=== PATIENT | female | born 1960 | race Caucasian/White ===

== ENCOUNTER → 2018-07-06 | Outpatient (CLI) | payer MEDICARE ==
--- NOTE | 2018-07-06 10:44 | MM ---
Reason for exam: additional evaluation requested from prior study. Last mammogram was performed 2 years and 1 month ago. History: Patient is postmenopausal and has history of other cancer at age 57. Silicone gel implants in both breasts, 2002. Physical Findings: Nurse did not find any significant physical abnormalities on exam. MG 3D Diag Mammo Imp W/Cad MACI Bilateral CC, MLO, and ID view(s) were taken. Prior study comparison: June 07, 2016, bilateral MG 3d diag mammo imp w/cad MACI. December 20, 2013, mammogram. The breast tissue is extremely dense which could obscure a lesion on mammography. There are benign appearing round calcifications bilaterally. There is no discrete abnormality. Bilateral subpectoral implants redemonstrated. These results were verbally communicated with the patient and result sheet given to the patient on 07/06/18. ASSESSMENT: Benign, BI-RAD 2 RECOMMENDATION: Routine screening mammogram of both breasts in 1 year.
== END ==
LOC: RADMAMWWP 07:09
PROVIDERS: ATTEND Family Medicine
DX: R92.8 Other abnormal and inconclusive findings on diagnostic imaging of breast (principal)
CPT/HCPCS: 77066; G0279; 77062

== ENCOUNTER → 2018-09-22 | Outpatient (CLI) | payer MEDICARE ==
--- NOTE | 2018-09-22 16:43 | PE ---
EXAMINATION TYPE: PET CT fusion skull to thigh DATE OF EXAM: 09/22/2018 COMPARISON: None at this institution HISTORY: Lung cancer had surgery May 17, 2017 TECHNIQUE: Following the intravenous administration of 14.3 mCi of F-18 FDG, whole body images are p erformed from the skull base to the midthigh. Images are reviewed on the computer in the coronal, ax ial, and sagittal planes. Reconstructed rotating images are created on independent workstation and r eviewed on the computer. A noncontrast CT is performed in conjunction with the PET scan. SCAN: Subsequent Scan FINDINGS: SKULL BASE AND NECK: No suspicious hypermetabolic uptake is present. CHEST, MEDIASTINUM, AND HILAR REGION: There is background mild to moderate underlying emphysematous c hange. There is focal irregular 1.2 x 0.9 cm consolidation anterior left upper to midlung axial image 87 favoring postinflammatory etiology. Surgical changes right hilar region extending superiorly are noted. No new nodules or areas of suspicious hypermetabolic uptake are present. There is minimal left basilar linear scarring and/or atelectasis just above diaphragm. ABDOMEN AND PELVIS: Mild diffuse bowel uptake is present. Normal excretion in kidneys and bladder is seen. No suspicious hypermetabolic uptake or worrisome adrenal masses are noted. OSSEOUS STRUCTURES: No suspicious hypermetabolic uptake is present. OTHER CT: Anterior fusion plate lower cervical spine is present. There is moderate coronary artery calcification which is noted marker for underlying coronary artery disease. Bilateral breast implants are noted. A 1.3 cm low dense lesion in periphery of right hepatic lobe axial image 144 favors thin-walled cyst. Scattered pelvic phleboliths are seen. There is multilevel facet degenerative change in the mid to lower lumbar spine. IMPRESSION: Postsurgical change to the right lung. No convincing evidence of hypermetabolic mass or a denopathy to suggest recurrent or metastatic malignancy.
== END | disposition home or self-care (01) ==
LOC: RADPETMAIN 13:11
PROVIDERS: ATTEND Thoracic Surgery (Cardiothoracic Vascular Surgery)
DX: Z08 Encounter for follow-up examination after completed treatment for malignant neoplasm (principal); C34.11 Malignant neoplasm of upper lobe, right bronchus or lung
CPT/HCPCS: 78815; A9552

== ENCOUNTER → 2021-06-08 | Outpatient (CLI) | payer MEDICARE ==
--- NOTE | 2021-06-09 10:24 | MM ---
Reason for exam: screening (asymptomatic). Last mammogram was performed 2 years and 11 months ago. History: Patient is postmenopausal and has history of other cancer at age 57. Silicone gel implants in both breasts, 2002. Physical Findings: A clinical breast exam by your physician is recommended on an annual basis and results should be correlated with mammographic findings. MG 3D Screen Mammo Imp/Cad Bilateral CC, MLO, and ID view(s) were taken. Prior study comparison: July 06, 2018, bilateral MG 3d diag mammo imp w/cad MACI. June 07, 2016, bilateral MG 3d diag mammo imp w/cad MACI. The breast tissue is heterogeneously dense. This may lower the sensitivity of mammography. Benign appearing bilateral calcifications. ASSESSMENT: Benign, BI-RAD 2 RECOMMENDATION: Routine screening mammogram of both breasts in 1 year.
== END | disposition home or self-care (01) ==
LOC: RADMAMWWP 07:11
PROVIDERS: ATTEND Family Medicine
DX: Z12.31 Encounter for screening mammogram for malignant neoplasm of breast (principal); Z85.89 Personal history of malignant neoplasm of other organs and systems
CPT/HCPCS: 77063; 77067